=== PATIENT | male | born 1965 | race Caucasian/White ===

== ENCOUNTER 2025-02-06 06:28 | Day surgery (SDC) | payer BC ==
[2025-02-06] MEDS: Lactated Ringers 1,000 ML IV SCH (06:41)
[2025-02-06] MEDS ORDERED: Propofol 200 MG/20 ML SDV ONE ×3 (07:58→08:46)
[2025-02-06] MEDS ORDERED: Midazolam 1 MG/ML 2 ML SDV ONE (07:58)
[2025-02-06] MEDS ORDERED: fentaNYL 100 MCG/2 ML SDV ONE (07:59)
== END 2025-02-06 09:50 | disposition home or self-care (01) ==
LOC: VM.SDS 06:28
PROVIDERS: ATTEND Student in an Organized Health Care Education/Training Program
DX: Z12.11 Encounter for screening for malignant neoplasm of colon (principal); D12.2 Benign neoplasm of ascending colon; D12.3 Benign neoplasm of transverse colon; D12.4 Benign neoplasm of descending colon; D12.5 Benign neoplasm of sigmoid colon; I10 Essential (primary) hypertension; E66.9 Obesity, unspecified; E78.1 Pure hyperglyceridemia; F17.210 Nicotine dependence, cigarettes, uncomplicated; Z79.899 Other long term (current) drug therapy; Z80.0 Family history of malignant neoplasm of digestive organs
CPT/HCPCS: 00811; J2250; J2704; J3010; J7120